=== PATIENT | female | born 1985 ===

== ENCOUNTER 2017-08-21 18:43 | Emergency (ER) | payer MEDICAID ==
[2017-08-21 19:17] VITALS: BP 122/79; PULSE 56; TEMP 97.5; O2SAT 98
[2017-08-21] MEDS ORDERED: Albuterol 0.083% Inhal Sol (2.5 mg/3 mL) UD IH STA (19:31)
[2017-08-21] MEDS ORDERED: Albuterol 0.083% Inhal Sol (2.5 mg/3 mL) UD ONE (19:36)
--- NOTE | 2017-08-21 20:00 | C.PDOC ---
History Of Present Illness 31 y/o female with PMHx of Asthma brought to ED by EMS with complaints of sob earlier today while in traffic at [facility]. Patient states she was stuck in traffic when symptoms developed and used inhaler x10 times with no relief and decided to call 911. Patient is speaking in full sentences and denies fever , chills, nausea, vomiting, chest pain, cough or any other physical complaints at this time. Time Seen by Provider: 08/21/17 19:26 Chief Complaint (Nursing): Shortness Of Breath History Per: Patient History/Exam Limitations: no limitations Onset/Duration Of Symptoms: Hrs Current Symptoms Are (Timing): Still Present Initiating Event: Upper Respiratory Illness Past Medical History Reviewed: Historical Data, Nursing Documentation, Vital Signs Vital Signs: Last Vital Signs Temp 97.5 F L 08/21/17 19:13 Pulse 56 L 08/21/17 19:13 Resp 20 08/21/17 20:12 BP 122/79 08/21/17 19:13 Pulse Ox 98 08/21/17 20:14 - Medical History PMH: Asthma Surgical History: No Surg Hx Family History: States: No Known Family Hx - Social History Hx Alcohol Use: No Hx Substance Use: No - Immunization History Hx Tetanus Toxoid Vaccination: No Hx Influenza Vaccination: No Hx Pneumococcal Vaccination: No Review Of Systems Constitutional: Negative for: Fever, Chills Cardiovascular: Negative for: Chest Pain Respiratory: Positive for: Shortness of Breath. Negative for: Cough Gastrointestinal: Negative for: Nausea, Vomiting Skin: Negative for: Rash Physical Exam - Physical Exam Appears: Non-toxic, No Acute Distress Skin: Normal Color, Warm, Dry, No Rash Head: Normacephalic Eye(s): bilateral: Normal Inspection, PERRL Oral Mucosa: Moist Throat: Normal, No Erythema, No Exudate Neck: Supple Cardiovascular: Rhythm Regular Respiratory: Decreased Breath Sounds, No Rales, No Rhonchi, Wheezing ( Expiratory bilaterally) Gastrointestinal/Abdominal: Soft, No Tenderness, No Guarding, No Rebound Extremity: No Pedal Edema, Capillary Refill (<2 seconds) Neurological/Psych: Oriented x3, Normal Speech (Speaking in full sentences) ED Course And Treatment O2 Sat by Pulse Oximetry: 98 (RA) Pulse Ox Interpretation: Normal Progress Note: Albuterol neb treatment x1. Prednisone ordered. On reassessment , patient is resting comfortably with no wheezing, chest pain, or retractions. Oxygen saturation and breath sounds have improved. Patient is alert and oriented x 3. Patient was advised to follow up with physician/clinic in 1-2 days and return to ED if symptoms worsen or persist. Reassessment Condition: Improved Disposition - Disposition Referrals: Jhoan Cortez [facility] [Outside] Disposition: HOME/ ROUTINE Disposition Time: 20:00 Condition: STABLE Additional Instructions: Continue albuterol inhaler or nebulizer Take PO prednisone as prescribed Increase PO fluids Return to ER if worse Prescriptions: predniSONE [Prednisone] 40 mg PO DAILY #8 tab Instructions: Asthma (ED) Forms: Check I'm Here (Romanian) - Clinical Impression Clinical Impression: Asthma exacerbation, mild - PA / GRAPHICS PROGRAMMER / Resident Statement MD/DO has reviewed & agrees with the documentation as recorded. - Scribe Statement The provider has reviewed the documentation as recorded by the Scribirlanda Aquino All medical record entries made by the Rodolfoibirlanda were at my direction and personally dictated by me. I have reviewed the chart and agree that the record accurately reflects my personal performance of the history, physical exam, medical decision making, and the department course for this patient. I have also personally directed, reviewed, and agree with the discharge instructions and disposition.
[2017-08-21 20:13] VITALS: RESP 20
== END 2017-08-21 20:12 | disposition home or self-care (01) ==
LOC: C.ER 18:43
DX: J45.901 Unspecified asthma with (acute) exacerbation (principal)